=== PATIENT | male | born 1965 | race Caucasian/White ===

== ENCOUNTER 2023-07-20 13:01 | Emergency (ER) | payer OTHER, SELFPAY ==
[2023-07-20 13:03] VITALS: BP 151/90
[2023-07-20 15:14] VITALS: BMI 43.7
[2023-07-20] MEDS: DUONEB 3 ML INH (15:18)
--- NOTE | 2023-07-20 15:33 | ED.GENMED ---
History of Present Illness
General
Chief Complaint: Breathing Problem
Source: patient
Exam Limitations: none
Time Seen by Provider: 07/20/23 14:56
Nursing documentation reviewed up to this point in time: agreed with
Travel History
Have you had any contact with someone who has COVID-19?: No
Do you have any symptoms of coronavirus? Fever > 100 degrees, chills, cough, shortness of breath, sore throat, loss of taste or smell, muscle aches, or headache?: No
History of Present Illness
History of Present Illness:
57-year-old male COPD no longer smoking for 22 years uses inhalers, not on chronic steroids not on chronic oxygen acute on chronic symptoms started up around 4 weeks ago when he stopped antibiotics worse the past few days last evening his heart rate
was fast his pulse ox was 86% on room air uses nebulizer every 3-4 hours today without much relief has had some productive sputum but no fever no history of heart failure
Past History
Past History
ED Past Medical History: COPD, HTN and Other (Eczema, morbid obesity); Negative NIDDM
ED Past Surgical History: Negative Bowel resection or Cardiac
Social History
Tobacco: Former smoker
Alcohol: Occasional
Drug: None
Personal:
Living: with family
Employment: Employed
Family History
Family History: Hypertension
Review of Systems
Review of Systems
All Other Systems: Not applicable
Constitutional: Denies fever or chills
Respiratory: Reports cough and trouble breathing
Cardiac: Reports no symptoms
ABD/GI: Reports no symptoms
: Reports no symptoms
Musculoskeletal: Reports no symptoms
Skin: Reports no symptoms
Neurological: Reports no symptoms
Endocrine: Reports no symptoms
Phy Exam
Physical Exam
Physical Exam:
Physical Exam
General: Tachypneic dyspneic appearing man
Neck: No jaundice
Heart: Tachycardia
Lungs: Tachypnea wheezing
Abdomen: Nontender
Neuro: alert and oriented. no focal neurological deficits
Skin: no rash
Psychiatric: well kept. interactive and cooperative
Extremities: Trace
Scores
Heart Failure Risk
Heart Failure Risk Score: Not Applicable
Course
Orders/Labs/Results
Orders:
Orders
07/20/23 15:16
Ipratropium/Albuterol Sulfate [Duoneb] 3 ml .ROUTE .STK-MED ONE
07/20/23 15:18
Ipratropium/Albuterol Sulfate [Duoneb] 3 ml INH R NOW ONE
07/20/23 15:20
Electrocardiogram (*1) Stat
Reason for Study: Other
Other Reason for Exam: pneumonia
Cardiac Monitoring- Treatment ONCE
EKG- Treatment ONCE
Dexamethasone Sod Phosphate [Decadron] 10 mg IV NOW STA
Ipratropium/Albuterol Sulfate [Duoneb] 3 ml INH R NOW STA
CR Chest - 2 Views Urgent
Comment:
Reason For Exam: sob
O2 Therapy [RESP] Stat
Nasal Cannula Liter Flow: 2 LPM
Titrate/Wean O2 to maintain O2 sat greater than (%): 93
07/20/23 16:34
Complete Blood Count/With Diff Urgent
Comprehensive Metabolic Panel Urgent
NT-proBNP Urgent
Troponin I Urgent
07/20/23 18:52
Albuterol Nebs [Ventolin Nebules] 2.5 mg INH R NOW STA
Abnormal Lab Results
07/20/23
16:34
MCH 31.5 H pg
(27.0-31.0)
MPV 10.7 H fL
(7.4-10.4)
Immature Gran % 0.6 H %
(0-0.5)
Eosinophils % 9.6 H %
(0-6)
Sodium 132 L mmol/L
(135-145)
Chloride 95 L mmol/L
(98-107)
Glucose 107 H mg/dl
(70-99)
07/20/23 16:34
07/20/23 16:34
Vital Signs
Initial and Last Documented VS:
Initial Vital Signs
Temp Pulse Resp BP Pulse Ox
98.6 F 87 18 151/90 96
07/20/23 13:03 07/20/23 13:03 07/20/23 13:03 07/20/23 13:03 07/20/23 13:03
Last Documented Vital Signs
Temp Pulse Resp BP Pulse Ox
98.6 F 78 20 126/81 95
07/20/23 13:03 07/20/23 18:00 07/20/23 18:00 07/20/23 18:00 07/20/23 18:00
MDM/Problems Addressed
Differential Diagnosis Includes:
COPD pneumonia bronchitis
MDM/Problems Addressed:
Shortness of breath cough
Chronic conditions affecting care: COPD
Acute Exacerbation and/or Progression of Chronic Illness: COPD
*Radiology
Radiology exam reviewed: preliminary read by ED provider
*Pulse Oximetry
Patient hypoxic: yes
Comment: 91
*EKG
Interpreted by ED Provider?: Yes
Interpretation: normal
Comparison EKG: no comparison EKG present
Heart Rate: 88
Rate: normal
Rhythm: sinus
Ischemia: no ischemia
*Residential Electrician Interpretation
Rate: normal
Interpretation: normal
Heart Rate: 88
Rhythm: sinus
*Critical Care Note
Total Time (30-74mins, 75-104mins- exclusive of procedures): 12
Update Note
Update Note:
7 PM patient states he is feeling much better moving more air oxygenation is adequate in the low 90s, will discharge with course of steroids antibiotics continue albuterol
Labs x-ray noted reviewed with patient
ED Attending Note
-
Portions of this chart may have been created with voice recognition software.� Occasional wrong word or��sound alike� substitutions may have occurred due to the inherent limitations of voice recognition software.
Discharge Plan
Departure
Patient Disposition: Home (Routine Discharge)
Date of Disposition: 07/20/23
Time of Disposition: 19:01
Patient with high blood pressure during this ER visit?: Yes
Condition: Good
Discharge Problem:
Acute bronchitis
Instructions: Exacerbation of COPD (DC)
Prescriptions:
New
doxycycline hyclate [Vibramycin] 100 mg capsule
100 mg PO BID Qty: 20 0RF
albuterol sulfate [ProAir HFA] 90 mcg/actuation HFA aerosol inhaler
1 puff INHALATION Q4HPRN PRN (Reason: bronchospasm) Qty: 1 0RF
prednisone 50 mg tablet
50 mg PO DAILY Qty: 5 0RF
albuterol sulfate 2.5 mg/0.5 mL solution for nebulization
2.5 mg inhalation Q4H PRN (Reason: bronchospasm) Qty: 30 0RF
No Action
lisinopril 20 MG tablet
20 mg PO DAILY
furosemide 20 MG tablet
20 mg PO DAILYPRN PRN (Reason: swelling of legs)
prednisone 10 MG tablet
10 mg PO .TAPER Qty: 30 0RF
Rx Instructions:
Take 40mg daily x3days, 30mg daily x3days,
20mg daily x3days, 10mg daily x3days.
ipratropium-albuterol 3 ML solution for nebulization
3 ml inhalation QID Qty: 60 0RF
allopurinol 100 MG tablet
100 mg PO BID
albuterol sulfate [Ventolin HFA] 90 MCG/PUFF HFA aerosol inhaler
2 puff inhalation .Q6H AND PRN PRN (Reason: SOB, wheezing)
glycopyrrolate-formoterol [Bevespi Aerosphere] 10.7 GM HFA aerosol inhaler
2 puff IH BID
Referrals:
Yovana Kelly CRNP [Family Provider] -
Interventions
Interventions:
*Risk Screen - Suicide Last Done: 07/20/23 13:03
*General Assessment Last Done: 07/20/23 13:03
*Neglect/Abuse Screening Last Done: 07/20/23 13:03
*ED COVID-19 Vaccine History Last Done: 07/20/23 13:03
ED- Cardiac Assessment Last Done: 07/20/23 15:12
ED- Pulmonary Assessment Last Done: 07/20/23 15:12
Discharge Date and Time
Print Language: PARAGUAYAN
[2023-07-20] MEDS: DECADRON 10 MG IV (15:40)
[2023-07-20 16:35] VITALS: BP 125/73
[2023-07-20 16:42] LABS: % Basophils 1.2 % (0-2); % Eosinophils 9.6 % (0-6); % Immature Granulocytes 0.6 % (0-0.5); % Lymphocytes 20.9 % (20.5-51.1); % Monocytes 7.1 % (1.7-9.3); % Neutrophils 60.6 % (42.2-75.2); Absolute Basophils 0.1 10^3/uL (0-0.2); Absolute Eosinophils 0.6 10^3/uL (0-0.7); Absolute Lymphocytes 1.4 10^3/uL (1.2-3.4); Absolute Monocytes 0.5 10^3/uL (0.1-0.6); Hematocrit 43.1 % (39.0-52.0); Hemoglobin 14.9 g/dL (13.0-18.0); Mean Corp Hgb Conc. 34.6 g/dL (33.0-37.0); Mean Corpuscular Hgb 31.5 pg (27.0-31.0); Mean Corpuscular Volume 91.1 fL (80.0-94.0); Mean Platelet Volume 10.7 fL (7.4-10.4); Nucleated Red Blood Cells % 0 % (-); Platelet Count 225 10^3/uL (130-400); Red Blood Cell Count 4.73 10^6/uL (4.70-6.10); Red Cell Dist. Width 13.4 % (11.5-14.5); White Blood Cell Count 6.6 10^3/uL (4.8-10.8)
[2023-07-20 16:54] LABS: ALT (SGPT) 27 U/L (0-50); AST (SGOT) 31 U/L (17-59); Albumin 4.4 g/dl (3.5-5.0); Alkaline Phosphatase 90 U/L (38-126); Blood Urea Nitrogen 17 mg/dl (9-20); Calcium 9.9 mg/dl (8.4-10.2); Carbon Dioxide 28 mmol/L (22-30); Chloride 95 mmol/L (98-107); Estimated Creatinine Clearance > 125 ml/min; Glucose 107 mg/dl (70-99); Sodium 132 mmol/L (135-145); Total Bilirubin 0.9 mg/dl (0.2-1.3); Total Protein 7.6 g/dl (6.3-8.2); eGFR > 60.00
[2023-07-20 17:00] VITALS: BP 124/79
[2023-07-20 17:04] LABS: NT-proBNP < 20.0 pg/ml; Troponin I < 0.012 ng/ml
[2023-07-20 18:00] VITALS: BP 126/81
[2023-07-20] MEDS: VENTOLIN NEBULES 2.5 MG INH (19:05)
== END 2023-07-20 20:08 | disposition home or self-care (01) ==
LOC: EMR 13:01
PROVIDERS: EMERGENCY PHYSICIAN Emergency Medicine; FAMILY PHYSICIAN Nurse Practitioner
DX: J20.9 Acute bronchitis, unspecified (principal); J44.0 Chronic obstructive pulmonary disease with (acute) lower respiratory infection; I10 Essential (primary) hypertension; E66.01 Morbid (severe) obesity due to excess calories; Z82.49 Family history of ischemic heart disease and other diseases of the circulatory system; Z87.891 Personal history of nicotine dependence
CPT/HCPCS: 99284; 94640; 96374; 71046; 80053; 83880; 84484; 85025; 93005

== ENCOUNTER → 2023-10-21 10:45 | Outpatient (REF) | payer OTHER, SELFPAY | LOC: RAD 10:45 | PROVIDERS: ATTENDING PHYSICIAN Nurse Practitioner Family; FAMILY PHYSICIAN Nurse Practitioner | DX: R91.1 Solitary pulmonary nodule (principal) | CPT/HCPCS: 71250 ==